=== PATIENT | female | born 1935 | race Hispanic/Latino ===

== ENCOUNTER 2017-09-11 23:06 | Emergency (ER) | payer MEDICARE, MEDICAID ==
[2017-09-12] MEDS ORDERED: Acetaminophen 325 MG TAB ONE (00:48)
--- NOTE | 2017-09-12 07:46 | RAD ---
THREE VIEWS OF THE RIGHT SHOULDER: COMPARISON: None. HISTORY: Worsening right shoulder pain after fall. FINDINGS: Three views of the right shoulder show no evidence of acute fracture or dislocation. Bone anchors ar e seen in the proximal humerus from prior right shoulder surgery. The visualized right thorax is unr emarkable. IMPRESSION: No evidence of acute osseous abnormality. POS: [facility]
--- NOTE | 2017-09-12 07:49 | RAD ---
TWO VIEWS OF THE RIGHT ELBOW: COMPARISON: None. HISTORY: Right elbow and shoulder pain after a fall. FINDINGS: Two views of the right elbow show no evidence of acute fracture or dislocation. No elbow effusion is seen. No degenerative changes are present. IMPRESSION: Unremarkable exam. POS: [facility]
== END 2017-09-12 01:20 | disposition home or self-care (01) ==
LOC: ERS 23:06
DX: S40.011A Contusion of right shoulder, initial encounter (principal); E03.9 Hypothyroidism, unspecified; I10 Essential (primary) hypertension; F03.90 Unspecified dementia, unspecified severity, without behavioral disturbance, psychotic disturbance, mood disturbance, and anxiety; E11.9 Type 2 diabetes mellitus without complications; F32.9 Major depressive disorder, single episode, unspecified; W19.XXXA Unspecified fall, initial encounter

== ENCOUNTER 2017-09-20 17:27 | Observation (INO) | payer MEDICARE, MEDICAID ==
[2017-09-20 18:23] LABS: #Eosinphils 0.3 thou/uL (0.0-0.7); #Lymphocytes 1.7 thou/uL (1.20-3.40); #Monocytes 1.2 thou/uL (0.11-0.59); #Neutrophils 7.2 thou/uL (1.40-6.50); %Basophils 0.2 % (0.0-1.0); %Lymphocytes 16.1 % (21.0-51.0); %Monocytes 11.7 % (0.0-10.0); Hemoglobin 11.8 g/dL (12.0-16.0); Mean Corpuscular HGB CONC 33.3 g/dL (32.0-36.0); Mean Corpuscular Hemoglobin 34.7 pg (27.0-31.0); Mean Platelet Volume 7.4 fL (7.4-10.4); Platelet Count 331 thou/uL (130-400); RBC Distribution Width 11.6 % (11.5-14.5); White Blood Cell (WBC) Count 10.5 thou/uL (4.8-10.8)
[2017-09-20 18:38] LABS: ALT (SGPT) 8 U/L (8-55); AST (SGOT) 14 U/L (5-34); Alkaline Phosphatase 75 U/L (40-150); Anion Gap 15 mmol/L (10-20); BUN (Urea Nitrogen) 15 mg/dL (9.8-20.1); Bilirubin, Total 0.5 mg/dL (0.2-1.2); CK (CPK) 34 U/L (29-168); Calc. Creatinine Clearance 0 mL/min (70-130); Calcium 9.5 mg/dL (7.8-10.44); Carbon Dioxide 29 mmol/L (23-31); Chloride 97 mmol/L (98-107); Estimated GFR-MDRD 52; Globulin 3.4 g/dL (2.4-3.5); Glucose 127 mg/dL (83-110); Potassium 4.1 mmol/L (3.5-5.1); Protein, Total 7.4 g/dL (6.0-8.3); Sodium 137 mmol/L (136-145)
[2017-09-20 18:43] LABS: CKMB 1.4 ng/mL (0-6.6); Troponin I Less than 0.010 ng/mL (< 0.028)
--- NOTE | 2017-09-20 18:43 | CT ---
EXAM: NONCONTRAST HEAD CT 09/20/17 COMPARISON: 04/13/17. HISTORY: Syncope. Head trauma. TECHNIQUE: Noncontrast head CT is performed from the skull base to skull vertex. FINDINGS: No parenchymal hemorrhage. No extra-axial hematoma. No midline shift. Basilar cisterns are patent. Ag e appropriate brain volume. Cortical green-white matter differentiation is preserved. Ventricles and sulci are patent and symmetric. Chronic small vessel ischemic changes in the white matter are noted. Calvarium is intact. Chronic right maxillary sinus disease. Partial opacification right mastoid air c ells. Stable hyperdensity involving the right scalp. Calvarium is intact. There are no fractures. Mild hype rostosis frontalis interna is noted. IMPRESSION: No intracranial posttraumatic sequela. POS: [facility]
--- NOTE | 2017-09-20 18:48 | CT ---
EXAM: CERVICAL SPINE CT WITHOUT CONTRAST 09/20/17 HISTORY: Syncope. Posttraumatic pain. COMPARISON: None. TECHNIQUE: CT cervical spine is performed without contrast. Reformatted images are submitted for interpretation. FINDINGS: Soft tissue neck structures are unremarkable. No prevertebral soft tissue swelling. No epidural hemat ana. Central spinal canal and neural foramina are patent. There is some degenerative change with resu ltant narrowing of the central spinal canal and foramina. Evaluation is limited by technique. Upper m ediastinum and lung apices are unremarkable. Cervical spine vertebral body height is maintained. No fracture. On the lateral projection, grade I a nterolisthesis of C4 upon C5, likely on the basis of degenerative change. There are degenerative galindo ges in the facets. There is severe degenerative disc disease at C5-C6 and moderate to severe degenera tive change at C6-C7. The odontoid process is intact. Appropriate alignment of the lateral masses of C1 and C2 as well as t he facets. IMPRESSION: No fracture. POS: [facility]
--- NOTE | 2017-09-20 20:16 | RAD ---
TWO VIEWS RIGHT HUMERUS: 09/20/17 HISTORY: Fall. Pain. COMPARISON: None. FINDINGS: There is previous right rotator cuff repair. No fracture. No cortical irregularity or periosteal reac tion. IMPRESSION: No fracture. POS: [facility]
--- NOTE | 2017-09-20 20:16 | RAD ---
ONE VIEW CHEST: 09/20/17 HISTORY: Fall. Chest pain. COMPARISON: 05/07/17. FINDINGS: Normal cardiac silhouette. Lungs and pleural spaces are clear. No pneumothorax or osseous abnormaliti es. IMPRESSION: No acute cardiopulmonary process. POS: [facility]
--- NOTE | 2017-09-20 20:17 | RAD ---
FOUR VIEWS RIGHT ELBOW: 09/20/17 HISTORY: Fall. Pain. COMPARISON: None. FINDINGS: No joint effusion. No fracture. No cortical irregularity or periosteal reaction. Mild degenerative ch anges are noted. IMPRESSION: No fracture. POS: [facility]
--- NOTE | 2017-09-20 20:18 | RAD ---
TWO VIEWS LEFT HIP: 09/20/17 HISTORY: Fall. Pain. COMPARISON: None. FINDINGS: Mild loss of joint space height. Contour of the femoral head is maintained. No fracture. IMPRESSION: No fracture. POS: [facility]
--- NOTE | 2017-09-20 20:19 | RAD ---
THREE VIEWS RIGHT SHOULDER 09/20/17 COMPARISON: 09/11/17 HISTORY: Fall. Trauma. Pain. FINDINGS: Postsurgical changes due to previous rotator cuff repair is noted. Limited evaluation of the glenohum eral joint space. No fracture or dislocation. Chronic changes are identified. Visualized right ribs a re unremarkable. IMPRESSION: No fracture or dislocation. POS: [facility]
[2017-09-20 21:29] LABS: Bilirubin Negative (Negative); Blood, Urine Negative (Negative); Clarity CLEAR (Clear); Glucose, Urine (Dipstick) Negative (Negative); Leukocyte Trace (Negative); Nitrite Negative (Negative); Protein, Urine (Dipstick) Negative (Neg-Trace); Specific Gravity, Urine 1.012 (1.002-1.036); pH, Urine 6.5 (5.0-9.0)
[2017-09-20 21:30] LABS: Bacteria/HPF None Seen HPF (None Seen); Hyaline Casts/LPF 4-6 HYALINE CAST LPF (0-3 Hyaline); Pathc Cast-AUWi Flag 1.08 (0-2.49); Squamous Epithelial 0-3 HPF (0-3); WBC/HPF 0-3 HPF (0-3)
[2017-09-20] MEDS ORDERED: traMADol HCl 50 MG TAB ONE (21:33)
[2017-09-20] MEDS ORDERED: Acetaminophen 325 MG TAB PO PRN (22:04)
[2017-09-20] MEDS ORDERED: Dextrose 5% in Water 1,000 ML IV PRN (22:10)
[2017-09-20] MEDS ORDERED: Dextrose 50% Abboject 50 ML SYRINGE SLOW IVP PRN (22:10)
[2017-09-20] MEDS ORDERED: HumaLOG 300 UNITS/3 ML VIAL SC PRN (22:10)
[2017-09-20 22:57] VITALS: BMI 27.1
[2017-09-20 23:28] LABS: Folate (Folic Acid) 7.9 ng/mL (7.0-31.4)
[2017-09-21] MEDS: Sodium Chloride 0.9% 1,000 ML IV SCH ×2 (00:15→08:50)
--- NOTE | 2017-09-21 00:22 | HP-2 ---
DATE OF ADMISSION: 09/20/2017 CODE STATUS: FULL. PRIMARY CARE PHYSICIAN: Dr. Oswald Richard. ATTENDING: Dr. Ortega. RESIDENT: Dr. Norman Elkins. HISTORIAN: The patient and family members. CHIEF COMPLAINT: Fall. HISTORY OF PRESENT ILLNESS: This is a 81-year-old female with a past medical history of dementia, who presents status post fall while she was at her granddaughter's home. The patient is normally a resident at [facility], but she had spent the day with her family. At the granddaughter's home, she was washing dishes when she suddenly felt like she lost her balance and fell towards the washer. Her granddaughter found her with her head and shoulders leaning forward onto the washer. The patient is unsure if she lost consciousness. She did not bite her tongue. She did not defecate or void during the episode. The patient did have a period afterward of confusion. She states after the fall that she had right shoulder pain, neck pain and left leg pain. The family states that this is the second fall within the last month. She is currently getting PT, OT and speech at the [facility]; however, she seems to be having more and more difficulty with falling and balance in general. ER: She received tramadol in the ER for pain. PAST MEDICAL HISTORY: 1. Dementia. 2. Type 2 diabetes. 3. Depression with psychotic features of hallucinations. 4. Hypothyroidism. 5. Urinary incontinence. 6. Hypertension. 7. Anxiety. 8. Osteoarthritis. 9. Chronic kidney disease, stage 2. 10. Severe MR. 11. Moderate aortic insufficiency. PAST SURGICAL HISTORY: 1. . 2. Hysterectomy. 3. Left knee replacement. 4. Right rotator cuff repair. ALLERGIES: PENICILLIN. MEDICATIONS: 1. Aricept 5 mg p.o. at bedtime. 2. Cymbalta 60 mg p.o. once a day. 3. Lisinopril 10 mg daily. 4. Metformin 500 mg twice a day. 5. Ranexa 500 mg extended release every 12 hours. 6. Aricept 5 mg p.o. daily. 7. Risperdal 1 mg p.o. daily in the evening. 8. Namenda 5 mg p.o. daily. FAMILY HISTORY: Noncontributory. SOCIAL HISTORY: Denies tobacco, alcohol, and drug use. REVIEW OF SYSTEMS: General: Denies fevers and chills, denies weight, appetite , sleep changes. Eyes: Denies vision changes or eye pain. Respiratory: Denies cough, congestion, shortness of breath. Cardiovascular: Denies chest pain, palpitations. GI: Denies nausea. : Denies incontinence, dysuria. Skin: Denies rashes or lesions. Musculoskeletal: Endorses left leg pain, right shoulder pain, right chest pain. Neuro: Denies weakness, numbness. Psychiatric: Denies anxiety, endorses depression. PHYSICAL EXAMINATION: VITAL SIGNS: Blood pressure 106/40, pulse of 50, respiratory rate 14, T-max 97.5, pulse ox 96% on room air, current weight 79 kilos. GENERAL: Alert and oriented to self and location, not oriented to time, somewhat oriented to situation. No apparent distress, well-developed, well- nourished, appropriately interactive. EYES: PERRLA, EOMI. Conjunctivae within normal limits. ENT: Nasal mucosa within normal limits. Oropharynx within normal limits. NECK: Supple, no lymphadenopathy, no thyromegaly. CARDIOVASCULAR: Sinus bradycardia with 2/6 systolic ejection murmur, 2+ radial pulses, 2+ pedal pulses. RESPIRATORY: Normal effort, no retractions, clear to auscultation bilaterally. SKIN: Warm and dry. ABDOMEN: Soft, nontender to palpation. Bowel sounds in all 4 quadrants. No masses or distention. EXTREMITIES: No clubbing, 1+ pitting edema in bilateral lower extremities with some chronic venous stasis and slight tenderness to palpation bilaterally. MUSCULOSKELETAL: Structurally within normal limits. No obvious areas of deformity or ecchymoses. NEUROLOGICAL: No focal deficits. Sensation within normal limits. Cranial nerves II-XII intact. GCS 15. PSYCHIATRIC: Appropriate. LABORATORY DATA: 1. CBC: 10.5, 11.8, 35.4, 331. 2. CMP: 137, 4.1, 97, 29, 15, 1.02, 127. 3. GFR 52. 4. Calcium, total protein, albumin: 9.5, 7.4, 4. 5. AST, ALT, alkaline phosphatase: 14, 8, 75. 6. Total bilirubin 0.5. 7. CK 34. 8. CK-MB 1.4. 9. Troponin I less than 0.010. 10. EKG, sinus bradycardia. 11. Chest x-ray, no acute cardiopulmonary process. IMAGIN. CT head without contrast, no acute intracranial process. 2. Cervical spine CT, No fracture. 3. Left hip x-ray, no fracture. 4. Right shoulder x-ray, no fracture. 5. Echo in 03/2017 showed 50% to 55% ejection fraction, severe mitral regurg, moderate aortic insufficiency, mild to moderate tricuspid regurgitation, mild pulmonary insufficiency. ASSESSMENT AND PLAN: A 81-year-old female with dementia who presents status post fall, admitted for possible syncope secondary to hypotension and sinus bradycardia. 1. Possible syncope. We will admit the patient to tele observation. Place her on maintenance fluids of normal saline at 120 mL per hour. The patient has been mildly hypotensive during her ER visit. We will order an echo since it has been about 6 months since her last one and the prior one did show some valvular disease. 2. Frequent falls. This is likely a combination of patient to being hypotensive, which could be a result of dehydration and a medication into strong dose of her lisinopril. She also has chronic sinus bradycardia, which could be contributing to her frequent falls as well as just overall instability and impaired coordination. The patient states she is getting PT, OT at the [facility]; however, we will order PT, OT and speech for further assessment of the patient's mental strength, coordination and balance training. She also has chronic anemia and we will order a B12 and folate as well as orthostatics in order to better assess the etiology of these frequent falls and near syncopal episode today. 3. Dementia. We will hold patient's Risperdal as that has recently been started on this patient and the granddaughter is concerned that it is worsening her hypotension. It was initially started because the patient was having hallucinations. We will hold the Risperdal overnight and consider decreasing the dose or discontinuing the Risperdal entirely. We will continue the patient' s Aricept and Namenda for patient's dementia. 4. Depression with psychotic features of hallucinations. As stated above, hold the Risperdal. At this time, possibly consider decreasing the dose and we will restart the patient's Cymbalta 60 mg p.o. daily. 5. Type [address] the patient on the hypoglycemic protocol as well as the hyperglycemia protocol to include sliding scale insulin. We will also restart the patient's metformin. 6. Hypotension. We think this is likely due to dehydration as well as the lisinopril. We will consider decreasing the lisinopril dose, but first we will hold it overnight. 7. Sinus bradycardia. This is a chronic issue; however, could be contributing to her frequent falls and the possible syncope. We will repeat an echo since her last one was in March approximately 6 months ago. 8. Chronic anemia. As stated above, we will order B12 and folate to further assess her anemia status. DISPOSITION AND LENGTH OF HOSPITAL STAY: One to two days. Symptomatic medications will be provided. History and physical exam as well as management discussed with Dr. Ortega. [facility]
[2017-09-21 04:38] LABS: #Eosinphils 0.2 thou/uL (0.0-0.7); #Lymphocytes 1.9 thou/uL (1.20-3.40); #Monocytes 0.8 thou/uL (0.11-0.59); #Neutrophils 4.8 thou/uL (1.40-6.50); %Basophils 0.4 % (0.0-1.0); %Eosinophils 2.7 % (0.0-10.0); %Lymphocytes 24.3 % (21.0-51.0); %Monocytes 10.5 % (0.0-10.0); %Neutrophils 62.1 % (42.0-75.0); Hemoglobin 10.2 g/dL (12.0-16.0); Mean Corpuscular HGB CONC 33.8 g/dL (32.0-36.0); Mean Corpuscular Hemoglobin 35.4 pg (27.0-31.0); Mean Platelet Volume 7.2 fL (7.4-10.4); Platelet Count 306 thou/uL (130-400); RBC Distribution Width 11.4 % (11.5-14.5); Red Blood Cell (RBC) Count 2.87 mill/uL (4.20-5.40); White Blood Cell (WBC) Count 7.7 thou/uL (4.8-10.8)
[2017-09-21 04:49] LABS: Anion Gap 11 mmol/L (10-20); BUN (Urea Nitrogen) 14 mg/dL (9.8-20.1); Calc. Creatinine Clearance 61 mL/min (70-130); Calcium 8.8 mg/dL (7.8-10.44); Carbon Dioxide 30 mmol/L (23-31); Chloride 101 mmol/L (98-107); Estimated GFR-MDRD 70; Glucose 146 mg/dL (83-110); Potassium 3.8 mmol/L (3.5-5.1); Sodium 138 mmol/L (136-145)
--- NOTE | 2017-09-21 06:13 | PDOC.FM ---
- Subjective Subjective: Patient is not a great historian. She states her biggest complaint this morning is her soreness from her fall. She denies lightheadedness, n/v/d, fevers, or chills. She states she has falls a lot, but she is extra sore from this one. Family is not present at time of this interview. No other concerns this morning. - Objective Vital Signs & Weight: Vital Signs (12 hours) Temp Pulse Resp BP BP BP BP 09/21/17 03:42 97.9 F 57 L 20 97/51 L 09/21/17 00:15 66 117/57 L 112/54 L 106/53 L 09/20/17 22:25 98.6 F 58 L 12 09/20/17 22:19 98.6 F 58 L 12 130/58 L Pulse Ox 09/21/17 03:42 96 09/21/17 00:15 09/20/17 22:25 09/20/17 22:19 96 Weight Weight 67.449 kg I&O: 09/19/17 09/20/17 09/21/17 06:59 06:59 06:59 Intake Total 840 Balance 840 Result Diagrams: 09/21/17 04:11 09/21/17 04:11 <Sunil Motley - Last Filed: 09/21/17 07:21> - Objective Vital Signs & Weight: Vital Signs (12 hours) Temp Pulse Resp BP BP Pulse Ox 09/21/17 12:00 97.5 F L 63 16 126/60 93 L 09/21/17 08:00 97.6 F 56 L 16 09/21/17 07:58 97.6 F 56 L 16 114/55 L 93 L 09/21/17 03:42 97.9 F 57 L 20 97/51 L 96 Weight Weight 67.449 kg I&O: 09/20/17 09/21/17 09/22/17 06:59 06:59 06:59 Intake Total 840 Balance 840 Result Diagrams: 09/21/17 04:11 09/21/17 04:11 <Candelaria Ortega - Last Filed: 09/21/17 13:43> Phys Exam - Physical Examination Constitutional: NAD HEENT: PERRLA, moist MMs Neck: no nodes Respiratory: no wheezing, clear to auscultation bilateral Cardiovascular: RRR systolic murmur present Gastrointestinal: soft, non-tender, no distention, positive bowel sounds Musculoskeletal: no edema, pulses present Neurological: non-focal, normal sensation, moves all 4 limbs Lymphatic: no nodes Psychiatric: normal affect, A&O x 3 Skin: no rash <Sunil Motley - Last Filed: 09/21/17 07:21> Dx/Plan (1) Syncope Code(s): R55 - SYNCOPE AND COLLAPSE Status: Acute (2) Frequent falls Code(s): R29.6 - REPEATED FALLS Status: Acute (3) Hypotension Status: Acute (4) Bradycardia Code(s): R00.1 - BRADYCARDIA, UNSPECIFIED Status: Acute (5) Chronic anemia Code(s): D64.9 - ANEMIA, UNSPECIFIED Status: Acute (6) DMII (diabetes mellitus, type 2) Status: Acute (7) Dementia Code(s): F03.90 - UNSPECIFIED DEMENTIA WITHOUT BEHAVIORAL DISTURBANCE Status: Acute (8) Depression Code(s): F32.9 - MAJOR DEPRESSIVE DISORDER, SINGLE EPISODE, UNSPECIFIED Status : Chronic - Plan Plan: 1. Syncope - ECHO pending - no further episodes during hospitalization 2. Frequent Falls - PT, OT, Speech consults pending - Could be due to hypotension - Fall precautions 3. Dementia - Continue Aricept and Namenda 4. Depression - Hold risperidal - Continue Cymbalta 5. DM2 - Continue Metformin - SSI - Accuchecks 6. Hypotension - Hold Lisinopril - IVF 7. Sinus bradycardia - Tele monitoring - Echo pending 8. Chronic anemia - B12 389 - Folate 7.9 (lower end of normal) - Will recommend supplement with folate Disposition: Stable, will await echo results and therapy evaluations. <Sunil Motley - Last Filed: 09/21/17 07:21> Attending Addendum - Attending Addendum I personally evaluated the patient and discussed the management with Dr. Motley. I agree with the History, Examination, Assessment and Plan documented above with any addition or exceptions noted below. Patient is stable. She may discharge this afternoon once echo is taken. cardiac enzymes negative. <Candelaria Ortega - Last Filed: 09/21/17 13:43>
[2017-09-21] MEDS ORDERED: DULoxetine 60 MG CAP PO SCH (09:00)
[2017-09-21] MEDS ORDERED: metFORMIN 500 MG TAB PO SCH (09:00)
[2017-09-21] MEDS ORDERED: FLU VACC TS2017-18 (>65YR) 0.5 ML SYRINGE IM ONE (09:00)
[2017-09-21 12:03] VITALS: BP 126/60; TEMP 97.5
--- NOTE | 2017-09-21 15:08 | RAD ---
RIGHT KNEE 4 VIEWS: Date: 09/21/17 HISTORY: Fall. COMPARISON: None. FINDINGS: There is a large joint effusion. Moderate genu valgus. No displaced fracture is appreciated. IMPRESSION: Large joint effusion greater than expected for the amount of degenerative disease. Trabecular microim paction fracture is likely, although no displaced fracture is seen. CT or MRI may be beneficial. POS: [facility]
--- NOTE | 2017-09-21 15:46 | HP ---
DATE OF SERVICE: 09/21/2017 CHIEF COMPLAINT: Fall. HISTORY OF PRESENT ILLNESS: The patient is a 81-year-old female with a past medical history of type 2 diabetes, dementia, depression with psychotic features, arthritis, hypothyroidism, and CKD 2, who p resented after a fall while at her granddaughter's home. The patient is apparently a resident of [facility], but had spent the day with her family when she lost balance and fell towards the washing mach ine. She was found leaning over the washing machine, but the patient, this morning, denied losing co nsciousness. Upon further questioning, she has had multiple falls in the past couple of weeks, but t he patient is unable to tell me what led to the fall. She denies tripping on anything. She thinks s he just has a sudden feeling of weakness. She denies chest pain, palpitations, shortness of breath, dizziness, blurry vision. In the ER, she had multiple x-rays and received tramadol for pain. PHYSICAL EXAMINATION: VITAL SIGNS: Temperature 97.6, pulse 56, respiratory rate 16, O2 sat 93% on room air, blood pressure 114/55. GENERAL: The patient was awake, alert, and oriented to person and place and in no acute distress. CARDIOVASCULAR: Patient was mildly bradycardic with a regular rhythm, 2/6 systolic ejection murmur. LUNGS: Clear to auscultation bilaterally without wheezing or rhonchi. ABDOMEN: Soft, nontender, nondistended, bowel sounds present. EXTREMITIES: No clubbing or cyanosis. The patient has trace lower extremity edema. NEUROLOGIC: Cranial nerves II through XII are grossly intact. Sensation is within normal limits. D eep tendon reflexes 2/4. LABORATORY DATA: 1. CBC: WBC 7.7, hemoglobin 10.2, hematocrit 30.0, platelet count 306. 2. BMP: Sodium 138, potassium 3.8, chloride 101, bicarb 30, BUN 14, creatinine 0.79, glucose 146, c alcium 8.8. 3. Cardiac enzymes are negative. 4. TSH 4.12, folate 7.9, B12 of 389. 5. Urinalysis significant for trace leukocyte esterase and 4-6 hyaline casts. IMAGING: EKG showed sinus bradycardia. Chest x-ray showed no acute processes. ASSESSMENT AND PLAN: 1. Fall with possible syncope: The patient was placed in observation over telemetry overnight. Bes ides some mild bradycardia, which is chronic for her, nothing else is noted on the rfid systems architect. She received some IV fluids and an echo is being repeated. 2. Frequent falls: Patient will have physical therapy. It may have been that dehydration led to so me of that, so she has received IV fluids overnight. The patient is feeling much better this morning and is asking to be discharged from the hospital. She has had B12 and folate checked which were all okay. 3. Dementia. 4. Depression. 5. Diabetes. 6. Hypertension. 7. Sinus bradycardia: This is chronic and has only a mild bradycardia. Echocardiogram will be orde red. Please see Dr. Birgit Austin's dictation for the full history and physical and assessment and plan. I have discussed the case in detail with her and repeated pertinent portions of the physical exam and history myself.
[2017-09-21] MEDS ORDERED: Donepezil HCl 5 MG TAB PO SCH (21:00)
--- NOTE | 2017-09-22 13:17 | DIS-2 ---
DATE OF ADMISSION: 09/20/2017 DATE OF DISCHARGE: 09/21/2017 RESIDENT: Dr. Motley. ADMITTING ATTENDING: Dr. Ortega. DISCHARGE ATTENDING: Dr. Ortega. CONSULTATIONS: With OT evaluation and treatment, PT evaluation and treatment, Speech evaluation and treatment. PROCEDURES: 1. The patient underwent a chest x-ray on 09/20/2017 that showed no acute cardiopulmonary process. 2. The patient underwent a brain CT on 09/20/2017 that showed no intracranial posttraumatic sequelae . 3. The patient underwent a cervical spine CT on 09/20/2017 that showed no fracture. 4. The patient underwent an elbow x-ray on 09/20/2017 that showed no fracture. 5. The patient underwent a hip x-ray on 09/20/2017 that showed no fracture. 6. The patient underwent a humerus x-ray on 09/20/2017 that showed no fracture. 7. The patient underwent a shoulder x-ray on 09/20/2017 that showed no fracture or dislocation. 8. The patient underwent an echocardiogram on 09/20/2017 that showed ejection fraction is visually e stimated at 50%-55%, normal size right ventricular cavity, left atrium of normal size, normal right a trium size, mild mitral regurgitation is present. Aortic valve leaflets are somewhat thickened. Mil d aortic regurgitation is noted. There is a mild aortic stenosis with valve area of 1.33 cm2, modera [id number] tricuspid regurgitation and mild pulmonic regurgitation is present. 9. The patient underwent a knee x-ray on 09/21/2017 that showed large joint effusion greater than ex pected for the amount of degenerative disease, trabecular micro impacted fractures likely, although n o displaced fracture seen. CT or MRI may be beneficial. PRIMARY DIAGNOSES: 1. Syncope. 2. Frequent falls. 3. Hypertension. 4. Bradycardia. 5. Chronic anemia. 6. Diabetes mellitus, type 2. 7. Dementia. 8. Depression. DISCHARGE MEDICATIONS: 1. Acetaminophen 650 mg p.o. q.4 hours p.r.n. 2. Aricept 5 mg p.o. at bedtime. 3. Zofran 4 mg p.o. q.6 hours p.r.n. 4. Metformin 500 mg p.o. b.i.d. 5. Ranexa 500 mg p.o. b.i.d. 6. Duloxetine 60 mg p.o. at bedtime. 7. Risperdal 0.5 mg p.o. at bedtime. DISCONTINUED MEDICATIONS: 1. Lisinopril 10 mg p.o. daily. 2. Risperidone 1 mg p.o. at bedtime. HISTORY OF PRESENT ILLNESS AND HOSPITAL COURSE: This is a 81-year-old female with past medical histo ry of dementia, who presents status post fall while she was at her granddaughter's home. The patient is normally a resident of [facility], but she spent the day with her family. At the gra nddaughter's home, she was washing dishes when she suddenly felt like she lost her balance and fell t owards the washer. Her granddaughter found her with her head and shoulders leaning toward forward on to the washer. The patient is unsure if she lost consciousness. She did not bite her tongue. She d id not defecate or void during the episode. The patient did have a period afterward of confusion. S he states after the fall she had right shoulder pain, neck pain, and left leg pain. The family state s this is the second fall within the last month. She apparently has frequent falls, longstanding. S he is currently getting PT, OT, and Speech at the senior care; however, she seems to be having more and more difficulty with falling and balance in general. During this hospitalization, the patient had multiple x-rays that showed no acute fracture or disloca tion that needed to be worked up. The patient had essentially normal lab values with a borderline lo w vitamin B12 of 389 and folate of 7.9 as well as troponins that were less than 0.01. Patient had so me vital signs, essentially showed that she was hypotensive during her entire hospitalization, and so it was determined that she needed to be discontinued on her lisinopril at least in the short term un til her blood pressure recovered. She was afebrile during her hospitalization, but her pulse was ave raging around 60 beats per minute as well. The patient had a urine culture that was drawn that showe d less than 10,000 colony-forming units with mixed skin and enteric jazmine present, and so no acute in fection from that standpoint. The patient otherwise stated that she was sore from her fall, but othe rwneftaly felt okay. She denies any chest pain, any shortness of breath, or any other nausea, vomiting, diarrhea, or confusion. The patient has a longstanding history of dementia and she was recently star pj on Risperdal about a month ago, which correlates somewhat to her more frequent falls, and so we d etermined to decrease the dose of Risperdal down to 0.5 mg at night instead of 1 mg in hopes that thi s will help to alleviate some of her falls and still give her some of the benefit of the medication. The patient had an echocardiogram that was essentially unchanged from her one in March and we do no t feel that this was a cardiac cause of her syncope. The patient otherwise had no complications duri ng this hospitalization and was discharged on appropriate condition. DISCHARGE INSTRUCTIONS: 1. Location: She will be discharged back into [facility] home facility. 2. Diet: Will be with no restrictions. 3. Activity: Will be with cardiopulmonary limitations, and she needs to continue with occupational and physical therapy as well as speech therapy at the senior care. 4. Followup: Will be with her PCP, Dr. Chen, in [address] Kole Souza in 14 d ays to discuss the knee x-ray findings. We wished this patient the best of luck and hope she has no further complications from this disease.
--- NOTE | 2017-09-27 13:45 | EKG ---
Test Reason : DIAGNOSING PURPOSES Blood Pressure : / mmHG Vent. Rate : 052 BPM Atrial Rate : 052 BPM P-R Int : 146 ms QRS Dur : 088 ms QT Int : 448 ms P-R-T Axes : 037 029 057 degrees QTc Int : 416 ms Sinus bradycardia Otherwise normal ECG Confirmed by RUSTY HUA ([id number]), movie editor MURTAZA ORELLANA ([id number]) on 09/27/2017 1:45:25 PM Referred By: Confirmed By:RUSTY HUA
== END 2017-09-21 16:04 ==
LOC: ERS 17:27 → 2SW 20:31
PROVIDERS: ADMIT Family Medicine; ATTEND Family Medicine
DX: R55 Syncope and collapse (principal); R29.6 Repeated falls; I12.9 Hypertensive chronic kidney disease with stage 1 through stage 4 chronic kidney disease, or unspecified chronic kidney disease; E11.22 Type 2 diabetes mellitus with diabetic chronic kidney disease; N18.2 Chronic kidney disease, stage 2 (mild); D63.1 Anemia in chronic kidney disease; E03.9 Hypothyroidism, unspecified; R32 Unspecified urinary incontinence; R00.1 Bradycardia, unspecified; M19.90 Unspecified osteoarthritis, unspecified site; I08.0 Rheumatic disorders of both mitral and aortic valves; F03.90 Unspecified dementia, unspecified severity, without behavioral disturbance, psychotic disturbance, mood disturbance, and anxiety; F32.3 Major depressive disorder, single episode, severe with psychotic features; F41.9 Anxiety disorder, unspecified; Z88.0 Allergy status to penicillin; Z79.84 Long term (current) use of oral hypoglycemic drugs; Z79.899 Other long term (current) drug therapy; Z90.710 Acquired absence of both cervix and uterus; Z96.652 Presence of left artificial knee joint; Z98.890 Other specified postprocedural states
CPT/HCPCS: 70450; 71045; 72125; 73030; 73060; 73080; 73502; 73564; 80048; 82550; 82553; 82607; 82746; 82962 ×2; 84484; 85025; 87086; 93005; 93306; 96360; 96361; 97139; 99285; G0378; 36415; 36416; 80053; 81003; 81015; 84443; G8996-GN-CI; G8997-GN-CI